=== PATIENT | male | born 1980 | race African-American/Black ===

== ENCOUNTER 2024-01-14 15:37 | Emergency (ER) | payer OTHER ==
[2024-01-14] MEDS ORDERED: MORPHINE 4 MG/ML SYR ONE (16:17)
[2024-01-14 16:55] LABS: Absolute Eosinophils 0.1 K/uL (0-0.5); Absolute Monocytes 0.9 K/uL (0.1-1.3); Absolute Neutrophil 10.1 K/uL (1.8-8.0); Basophils % 0.4 % (0-1.3); Eosinophils % 1.2 % (0-4.4); Hematocrit 41.2 % (39.6-49.0); Hemoglobin 13.1 g/dL (13.6-17.9); Lymphocytes % 8.3 % (15.3-44.8); MCH 24.2 pg (27.0-35.0); MCHC 31.8 g/dL (32.0-36.0); MCV 76.3 fL (80-100); Monocytes % 7.4 % (3.3-12.3); Neutrophils % 82.7 % (41.7-73.7); Nucleated Red Blood Cells % 0.1 % (0-0); Platelets 211 thou/uL (152-406); RBC Red Blood Cell Count 5.39 M/uL (4.33-5.43); Red Cell Distribution Width 15.5 % (12.1-15.2)
[2024-01-14 17:00] LABS: Sqamous Epithelial <5 /HPF (None Seen); Urine Bacteria None Seen /HPF (<20); Urine Bilirubin NEGATIVE (Negative); Urine Blood Negative (Negative); Urine Clarity Clear (Clear); Urine Color Light-Yellow (Yellow); Urine Culture Reflex Order REFLEXED; Urine Glucose NEGATIVE (Negative); Urine Ketones TRACE (Negative); Urine Microscopic Reflex YN ORDER UMIC; Urine Mucus Slight /HPF (None Seen); Urine Nitrite NEGATIVE (Negative); Urine Protein NEGATIVE (Negative); Urine Urobilinogen Normal (Normal); Urine pH 7.5 (5.0-7.0)
[2024-01-14 17:12] LABS: Albumin 3.7 g/dL (3.4-5.0); Albumin/Globulin Ratio 0.9 (1.1-1.8); Anion Gap 10.8 mEq/L (5.0-15.0); Bilirubin Total 0.9 mg/dL (0.2-1.0); Globulin 4.1 g/dL (2.3-3.5); Potassium 3.8 mEq/L (3.5-5.1); Protein, Total 7.8 g/dL (6.4-8.2)
--- NOTE | 2024-01-14 17:45 | RAD REPORT ---
EXAM DESCRIPTION: CTAbdomen Pelvis W Contrast - 01/14/2024 5:37 pm CLINICAL HISTORY: Abdominal pain. ABD PAIN COMPARISON: <Comparisons> TECHNIQUE: Venous CT imaging of the abdomen and pelvis was performed with 100 ml non-ionic IV contra st. All CT scans are performed using dose optimization technique as appropriate and may include automated exposure control or mA/KV adjustment according to patient size. FINDINGS: The lung bases are clear. The liver demonstrates fatty liver with a very small low-density lesion inferior right lobe measuring 7 mm, nonspecific but probably benign. Spleen, pancreas, adrenal glands and kidneys are within delbert l limits. No bowel obstruction, free air, free fluid or abscess. Significant inflammation surrounds the descend ing colon approximately 10 cm in length from the level of the inferior kidney to the left quadrant. T here are numerous diverticula in this region as well. No drainable abscess collection. The appendix i s normal. No evidence of significant lymphadenopathy. No suspicious bony findings. IMPRESSION: Long segment of descending colon in the left flank close findings of acute diverticuliti s. No abscess. Colonoscopy followup would be advised after the treatment.
--- NOTE | 2024-01-14 17:56 | ER ---
Nurse's Notes [facility] Name: Alan Merlos Age: 44 yrs Sex: Male : 1980 Arrival Date: 01/14/2024 Time: 15:37 Bed DX1 Private MD: Diagnosis: Uncomplicated diverticulitis Presentation: 01/13 16:10 Chief complaint: Patient states: LLQ pain, that radiates from L mid back down to L ph testicle, also reports nausea. Coronavirus screen: Vaccine status: Patient reports receiving the 2nd dose of the covid vaccine. Ebola Screen: No symptoms or risks identified at this time. Initial Sepsis Screen: Does the patient meet any 2 criteria? No. Patient's initial sepsis screen is negative. Does the patient have a suspected source of infection? No. Patient's initial sepsis screen is negative. Risk Assessment: Do you want to hurt yourself or someone else? Patient reports no desire to harm self or others. Onset of symptoms was January 14, 2024. 16:10 Method Of Arrival: Ambulatory ph 16:10 Acuity: DUNCAN 3 ph Triage Assessment: 16:13 General: Appears in no apparent distress. uncomfortable, Behavior is calm, cooperative. ph Pain: Complains of pain in left lower quadrant Pain radiates to groin. Neuro: Level of Consciousness is awake, alert, obeys commands, Oriented to person, place, time, situation. GI: Reports lower abdominal pain, nausea. : Reports pain in left lower quadrant(s) in lower back scrotum. Historical: - Allergies: 16:11 No Known Allergies; ph - Home Meds: 16:11 amlodipine oral [Active]; ph - PMHx: 16:11 Hypertensive disorder; ph - PSHx: 16:11 ACL repair; testicular torsion; ph - Immunization history:: Adult Immunizations unknown. - Infectious Disease History:: Denies. - Social history:: Smoking status: Patient denies any tobacco usage or history of. - Family history:: not pertinent. Screenin:11 [facility] ED Fall Risk Assessment (Adult) History of falling in the last 3 months, ph including since admission No falls in past 3 months (0 pts) Confusion or Disorientation No (0 pts) Intoxicated or Sedated No (0 pts) Impaired Gait No (0 pts) Mobility Assist Device Used No (0 pt) Altered Elimination No (0 pt) Score/Fall Risk Level 0 - 2 = Low Risk Oriented to surroundings, Maintained a safe environment, Hourly rounding (assess needs \T\ fall precautionary measures) done. Abuse screen: Denies threats or abuse. Denies injuries from another. Nutritional screening: No deficits noted. Tuberculosis screening: No symptoms or risk factors identified. Assessment: 17:08 General: SEE TRIAGE ASSESSMENT. ph Vital Signs: 16:10 BP 139 / 87; Pulse 65; Resp 18; Temp 97.6; Pulse Ox 98% on R/A; ph ED Course: 15:42 Patient arrived in ED. im 15:48 Chetan Miner MD is Attending Physician. rt 16:11 Triage completed. ph 16:13 Arm band placed on Patient placed in waiting room, Patient notified of wait time. ph 16:25 Initial lab(s) drawn, by me, sent to lab. Urine collected: clean catch specimen, chuy ph colored. Inserted saline lock: 22 gauge in left antecubital area, using aseptic technique. Blood collected. Flushed with 10 mL NS. 16:33 Radiology exam delayed due to IV insertion attempt and/or patient not having nj appropriate IV at this time. 16:33 Radiology exam delayed due to lab results not completed at this time. (BUN/Creatinine). nj 17:08 Frida Avelar, RN is Primary Nurse. ph 17:11 Patient has correct armband on for positive identification. ph 17:39 CT Abd/Pelvis - IV Contrast Only In Process Unspecified. EDMS 17:56 Dickson Madsen MD is Referral Physician. rt 18:25 Provided Education on: discharge instructions. ap3 18:25 No provider procedures requiring assistance completed. IV discontinued, intact, ap3 bleeding controlled, No redness/swelling at site. Pressure dressing applied. Administered Medications: 16:27 Drug: morphine IVP or IV 4 mg IVP once over 4 mins Route: IVP; Infused Over: 4 mins; ph Site: left antecubital; 18:08 Follow up: Response: No adverse reaction; Pain is decreased ap3 18:31 Drug: Amoxicillin-Clavulanate PO 875 mg PO once Route: PO; ph 18:35 Follow up: Response: No adverse reaction ph Medication: 17:11 VIS not applicable for this client. ph Outcome: 17:56 Discharge ordered by . rt 18:25 Discharged to home ambulatory, ap3 18:25 Condition: good 18:25 Discharge instructions given to patient, Instructed on discharge instructions, follow up and referral plans. Demonstrated understanding of instructions, follow-up care, medications, Prescriptions given X 3, 18:31 Patient left the ED. ph Signatures: Dispatcher [employer] EDFrida Babb RN RN Luis Gonzalez Amanda, RN RN ap3 Chetan Miner MD MD rt Mary Beth Yap
--- NOTE | 2024-01-14 17:56 | EDPHYS ---
Physician Documentation [facility] Name: Alan Merlos Age: 44 yrs Sex: Male : 1980 Arrival Date: 01/14/2024 Time: 15:37 Bed DX1 Private MD: ED Physician Chetan Miner HPI: 01/13 17:23 This 44 yrs old Black Male presents to ER via Ambulatory with complaints of Abdominal rt Pain, Low Back Pain, Scrotal Pain, Acute Onset, Fever, Nausea, Vomiting. 17:23 Patient presents to the ED with 2 days of the left lower quadrant pain radiating to the rt scrotum. The patient denies dysuria, hematuria. The patient reports that the symptoms are always there but wax and wane in intensity. States that they worsened today. Reports nausea, did take 4 mg of Zofran just prior to arrival which did improve the symptoms. Denies other acute complaints at this time, symptoms are moderate in severity, no other aggravating alleviating factors.. Historical: - Allergies: 16:11 No Known Allergies; ph - Home Meds: 16:11 amlodipine oral [Active]; ph - PMHx: 16:11 Hypertensive disorder; ph - PSHx: 16:11 ACL repair; testicular torsion; ph - Immunization history:: Adult Immunizations unknown. - Infectious Disease History:: Denies. - Social history:: Smoking status: Patient denies any tobacco usage or history of. - Family history:: not pertinent. ROS: 17:23 Constitutional: Negative for fever, chills, and weight loss, Cardiovascular: Negative rt for chest pain, palpitations, and edema, Respiratory: Negative for shortness of breath, cough, wheezing, and pleuritic chest pain, MS/Extremity: Negative for injury and deformity, Skin: Negative for injury, rash, and discoloration, Neuro: Negative for headache, weakness, numbness, tingling, and seizure, 17:23 Abdomen/GI: Positive for abdominal pain, nausea, 17:23 : Positive for Scrotal pain, Negative for burning with urination, Exam: 17:23 Constitutional: This is a well developed, well nourished patient who is awake, alert, rt and in no acute distress. Head/Face: Normocephalic, atraumatic. Chest/axilla: Normal chest wall appearance and motion. Nontender with no deformity. No lesions are appreciated. Cardiovascular: Regular rate and rhythm with a normal S1 and S2. No gallops, murmurs, or rubs. Normal PMI, no JVD. No pulse deficits. Respiratory: Lungs have equal breath sounds bilaterally, clear to auscultation and percussion. No rales, rhonchi or wheezes noted. No increased work of breathing, no retractions or nasal flaring. Skin: Warm, dry with normal turgor. Normal color with no rashes, no lesions, and no evidence of cellulitis. MS/ Extremity: Pulses equal, no cyanosis. Neurovascular intact. Full, normal range of motion. Neuro: Awake and alert, GCS 15, oriented to person, place, time, and situation. Cranial nerves II-XII grossly intact. Motor strength 5/5 in all extremities. Sensory grossly intact. Cerebellar exam normal. Normal gait. 17:23 Abdomen/GI: Tenderness to the left lower quadrant without guarding, rebound, distention, Vital Signs: 16:10 BP 139 / 87; Pulse 65; Resp 18; Temp 97.6; Pulse Ox 98% on R/A; ph MDM: 16:09 Patient medically screened. rt 18:03 Differential diagnosis:. rt 18:08 Differential diagnosis: Diverticulitis, pyelonephritis, ureteral colic. Data reviewed: rt vital signs, nurses notes. Consideration of Admission/Observation Escalation of care including admission/observation considered. Patient is stable vital signs, does not meet SIRS criteria, diverticulitis is uncomplicated. No indications for admission at this time. Will send patient home with trial of outpatient antibiotics. Discussed return precautions with the patient. Discussed recommendations for colonoscopy with the patient. Will follow-up with his technical document writer for further care.. I considered the following discharge prescriptions or medication management in the emergency department Medications were administered in the Emergency Department. See MAR. Independent interpretation of the following test(s) in the Emergency Department CT Scan: My interpretation is No ureteral stone seen on interpretation of CT scan images. Care significantly affected by the following chronic conditions: Hypertension. Counseling: I had a detailed discussion with the patient and/or guardian regarding the historical points, exam findings, and any diagnostic results supporting the discharge/admit diagnosis, lab results, radiology results, the need for outpatient follow up, to return to the emergency department if symptoms worsen or persist or if there are any questions or concerns that arise at home. Response to treatment: the patient's symptoms have markedly improved after treatment. 01/13 16:16 Order name: CBC with Diff; Complete Time: 17:45 rt 01/13 16:16 Order name: CMP; Complete Time: 17:45 rt 01/13 16:16 Order name: Lipase; Complete Time: 17:45 rt 01/13 16:16 Order name: Urinalysis w/ reflexes; Complete Time: 17:45 rt 01/13 17:04 Order name: Urine Culture EDMS 01/13 16:16 Order name: CT Abd/Pelvis - IV Contrast Only; Complete Time: 17:45 rt 01/13 16:16 Order name: IV Saline Lock; Complete Time: 16:27 rt 01/13 16:16 Order name: Labs collected and sent; Complete Time: 16:27 rt Administered Medications: 16:27 Drug: morphine IVP or IV 4 mg IVP once over 4 mins Route: IVP; Infused Over: 4 mins; ph Site: left antecubital; 18:08 Follow up: Response: No adverse reaction; Pain is decreased ap3 18:31 Drug: Amoxicillin-Clavulanate PO 875 mg PO once Route: PO; ph 18:35 Follow up: Response: No adverse reaction ph Disposition Summary: 01/14/24 17:56 Discharge Ordered Notes: Location: Home rt Problem: new rt Symptoms: have improved rt Condition: Stable rt Diagnosis - Uncomplicated diverticulitis rt Followup: rt - With: Dickson Madsen MD - When: 10 - 14 days - Reason: Discharge Instructions: - Discharge Summary Sheet rt - Diverticulitis rt Forms: - Medication Reconciliation Form rt - Antibiotic Education rt - Prescription Opioid Use rt - Patient Portal Instructions rt - Leadership Thank You Letter rt Prescriptions: - acetaminophen-codeine 300-30 mg Oral tablet - take 1 tablet ORAL route every 6 hours as needed for pain; 18 tablet; Refills: rt 0, Product Selection Permitted - ondansetron 4 mg Oral Tablet,disintegrating - take 1 tablet ORAL route every 6 hours as needed for nausea and vomiting; 18 rt tablet; Refills: 0, Product Selection Permitted - Augmentin 875-125 mg Oral Tablet - take 1 tablet ORAL route every 12 hours for 10 days; 20 tablet; Refills: 0, rt Product Selection Permitted Signatures: Dispatcher [facility] EDMS Frida Avelar, RN RN ph Chetan Miner MD MD rt Luna Wright RN ap3 Corrections: (The following items were deleted from the chart) 16:16 16:16 CBC+H.LAB.BRZ ordered. EDMS EDMS 16:16 16:16 COMPREHENSIVE METABOLIC PANEL+C.LAB.BRZ ordered. EDMS EDMS 16:16 16:16 LIPASE+C.LAB.BRZ ordered. EDMS EDMS 16:16 16:16 Urinalysis+U.LAB.BRZ ordered. EDMS EDMS 16:16 16:16 Abdomen Pelvis W Con+CT.RAD.BRZ ordered. EDMS EDMS
[2024-01-14] MEDS ORDERED: AMOX/K CLAV 875 MG TAB ONE (18:11)
[2024-01-14 18:51] VITALS: BP 139/87; TEMP 97.6; O2SAT 98
== END 2024-01-14 18:31 | disposition home or self-care (01) ==
LOC: ER 15:37
DX: K57.32 Diverticulitis of large intestine without perforation or abscess without bleeding (principal); I10 Essential (primary) hypertension
CPT/HCPCS: 87088; 85025; 81001; 87086; 36415; 83690; 80053; 74177; Q9967